=== PATIENT | female | born 1995 | race Caucasian/White ===

== ENCOUNTER 2017-09-24 22:58 | Emergency (ER) | payer OTHER ==
[~2017-09-24] VITALS: Ht 152.4 cm; Wt 48.5 kg
[2017-09-24 23:02] VITALS: Ht 152.4 cm; Wt 48.5 kg
[2017-09-24 23:56] LABS: BASOPHIL % 0.2 % (0-2); PLATELET COUNT 260 x10^3mcL (130-400); RED CELL DISTRIBUTION WIDTH 13.5 % (11.5-14.5)
[2017-09-25 00:07] LABS: CALCIUM 8.7 mg/dL (8.5-10.1); CARBON DIOXIDE 26.6 mmol/L (21-32); CHLORIDE SERUM 103 mmol/L (98-107); CREATININE SERUM 0.5 mg/dL (0.6-1.0); GFR1 > 60 mL/min; GLUCOSE SERUM 101 mg/dL (74-106); POTASSIUM SERUM 3.2 mmol/L (3.5-5.1); SODIUM SERUM 138 mmol/L (136-145)
[2017-09-25 00:11] LABS: ALBUMIN 3.9 g/dL (3.4-5.0); ALKALINE PHOSPHATASE 82 U/L (46-116); ALT/SGPT 31 U/L (14-59); AST/SGOT 27 U/L (15-37); LIPASE 147 IU/L (73-393); TOTAL PROTEIN, SERUM 7.5 g/dL (6.4-8.2)
[2017-09-25 04:06] VITALS: BP 97/70
== END 2017-09-25 04:52 | disposition home or self-care (01) ==
LOC: ED 22:58
PROVIDERS: Emergency Medicine
DX: R10.32 Left lower quadrant pain (principal); Z88.1 Allergy status to other antibiotic agents
CPT/HCPCS: J2270; J2405; J7030; Q0092

== ENCOUNTER 2018-07-07 23:31 | Emergency (ER) | payer OTHER ==
[~2018-07-07] VITALS: Ht 152.4 cm; Wt 49.0 kg
[2018-07-07 23:54] VITALS: Ht 152.4 cm; Wt 49.0 kg
[2018-07-08 00:35] LABS: PLATELET COUNT 262 x10^3mcL (130-400)
[2018-07-08 00:38] LABS: BASOPHIL % 0 % (0-2)
[2018-07-08 00:45] LABS: CALCIUM 8.9 mg/dL (8.5-10.1); CARBON DIOXIDE 25.6 mmol/L (21-32); CHLORIDE SERUM 100 mmol/L (98-107); CREATININE SERUM 0.7 mg/dL (0.6-1.0); GFR1 > 60 mL/min; GLUCOSE SERUM 109 mg/dL (74-106); POTASSIUM SERUM 3.1 mmol/L (3.5-5.1); SODIUM SERUM 136 mmol/L (136-145)
[2018-07-08 00:50] LABS: ALKALINE PHOSPHATASE 81 U/L (46-116); ALT/SGPT 25 U/L (14-59); AST/SGOT 15 U/L (15-37); BILIRUBIN TOTAL 0.4 mg/dL (0.20-1.00); LIPASE 113 IU/L (73-393)
[2018-07-08 02:11] LABS: microscopic required? YES; urine erythrocyte NEGATIVE (NEGATIVE)
[2018-07-08 05:18] VITALS: BP 104/60
== END 2018-07-08 05:18 | disposition home or self-care (01) ==
LOC: ED 23:31
PROVIDERS: Emergency Medicine
DX: R10.31 Right lower quadrant pain (principal); R10.32 Left lower quadrant pain; R50.9 Fever, unspecified; R42 Dizziness and giddiness; R51 Headache; R11.0 Nausea; M79.10 Myalgia, unspecified site; Z88.1 Allergy status to other antibiotic agents
CPT/HCPCS: 87804; J0500; J2270; J2405; J2765; J7030; Q0162